=== PATIENT | male | born 1955 | race Hispanic/Latino ===

== ENCOUNTER 2019-03-09 10:06 | Day surgery (SDC) | payer BC ==
[2019-03-09] MEDS ORDERED: Fentanyl 100 MCG/2 ML VIAL ONE ×2 (11:18→11:50)
[2019-03-09] MEDS ORDERED: cefTRIAXone\\ROCEPHIN 2 GM VIAL ONE (11:30)
[2019-03-09] MEDS ORDERED: Sodium Chloride 0.9% 100 ML ONE (11:31)
[2019-03-09] MEDS ORDERED: Iothalamate Meglumine 60% 50 ML VIAL FS ONE (11:53)
--- NOTE | 2019-03-09 13:30 | RAD ---
EXAM: XR IVP Retrograde PROVIDED CLINICAL HISTORY: Ureteral stent placement, renal stones. COMPARISON: None FINDINGS/IMPRESSION: 18 fluoroscopic images from a retrograde left urogram are submitted for interpretation. [employer] image d emonstrates metallic densities overlying the region of the pubic symphysis with degenerative changes in the spine. Subsequent imaging demonstrates ureteral catheter in place with left retrograde urogram performed. No definite filling defect is seen within the region of the left renal collecting system or in the visualized left ureter. Final image demonstrates double pigtail left uret eral stent in place. Correlation with intraoperative findings is recommended.
[2019-03-09] MEDS ORDERED: Glycopyrrolate 0.2 MG/ML 5 ML SYRINGE ONE (14:41)
[2019-03-09] MEDS ORDERED: PHENYLEPHRINE-NS 100 MCG/ML 10 ML SYRINGE ONE (14:41)
[2019-03-09] MEDS ORDERED: Rocuronium Bromide 10 MG/ML (10ML VIAL) ONE (14:41)
[2019-03-09] MEDS ORDERED: Ondansetron PF 4 MG/2 ML Vial ONE (14:41)
[2019-03-09] MEDS ORDERED: Dexamethasone 20 MG/5 ML VIAL ONE (14:41)
[2019-03-09] MEDS ORDERED: ePHEDrine 50 MG/ML VIAL ONE (14:41)
[2019-03-09] MEDS ORDERED: PROPOFOL 200 MG/20 ML VIAL ONE (14:41)
[2019-03-09] MEDS ORDERED: Lidocaine 1% PF 5 ML VIAL ONE (14:41)
--- NOTE | 2019-03-10 08:52 | OP ---
DATE OF PROCEDURE: 03/09/2019 PREOPERATIVE DIAGNOSES: Left ureteral obstruction, gross hematuria, and prostate cancer. POSTOPERATIVE DIAGNOSES: Left ureteral obstruction, gross hematuria, and prostate cancer. PROCEDURE PERFORMED: Cysto, left retrograde, left stent, and transurethral resection of left trigone at left ureteral orifice. SPECIMEN REMOVED: FINDINGS: There was no evidence of stricture. There were some [id number] radiation changes on the trigone and bladder neck, little oozing from the bladder neck. There was no efflux from the left ureteral orifice, but once a wire was passed, there was bloody efflux. This was collected when we placed the open-ended catheter up and was sent for cytology. There was no obvious bladder tumor, foreign body or stone, or fistula, but there was some mound of tissue that appeared to actually be covered with mucosa that was around the left ureteral orifice and seemed to be involving that area of the trigone. It was a little difficult to get a guidewire across, so we ended up using an angled Glidewire to manipulate it, and once this was done, there was bloody efflux of urine, and the urine in the proximal ureter and renal pelvis was bloody when our open-ended catheter was placed up that high. It appears that the obstruction is right at the intramural ureter. For this reason, we went ahead and resected this tissue just to get a biopsy and know what it is and to see if that would actually open up the ureter for the future. DRAINS PLACED: 6 x 24 Polaris double-J stent without a string attached and a 20-Filipino Devi catheter at and 10 mL balloon. DESCRIPTION OF PROCEDURE: After obtaining written and verbal consent from the patient, after receiving IV antibiotics, he was taken to the operating suite. He was placed in a supine position on the treatment table. PlexiPulses were placed in his lower extremities and turned on. He was given a general anesthetic oral intubation, placed in dorsal lithotomy position under the fluoroscopic unit and sterilely prepped and draped for the above procedure. Cystoscopy was performed with a 22-Filipino sheath. This was well lubricated and passed under direct vision through the male urethra into the urinary bladder with aid of a 30-degree lens, a video camera, and monitor. There was a fair amount of bloody urine on the floor of the bladder. This was drained out, and the bladder was examined with the 30 and the 70-degree lens and filled and emptied number of times. The findings are as above. We went ahead and brought in a cone-tipped catheter hoping that we could maybe get it into the ureteral orifice that was sitting just offset from the center of this mound of tissue, it was not possible. We brought in a Pollack catheter 5-Filipino and placed through it an angle-tipped Glidewire, and then we were able to manipulate this into the left ureteral orifice and watch it go up the left ureter fluoroscopically. Once this was done, he started having bloody urine come out of the left ureteral orifice. A 5-Filipino Pollack catheter was placed over this and pushed up to the region of renal pelvis. The Glidewire was removed, and we drained about 12 mL of bloody urine from the upper collecting system, and this was sent for cytology. We then replaced the open-ended catheter over the Glidewire, removed the Glidewire, and then placed a 0.038 guidewire through the Pollack catheter and then removed the Pollack catheter leaving the guidewire in place. Next, we brought in a 24-Filipino resectoscope sheath with visual obturator, passed under direct vision with a 30-degree lens, well lubricated through the male urethra into the bladder, brought in Pedersen resectoscope with Gyrus generator and used this to resect the tissue that was abutting the ureteral orifice mainly on top and just lateral to it, cauterized this area, and specimens were removed and sent off. We then went ahead and removed these instruments and backloaded the guidewire through the Pollack catheter, placed Pollack catheter back up into the left upper collecting system, injected contrast filling up the entire collecting system. There was no extravasation at the area that we resected. The wire was placed back through the open-ended catheter. A stent was placed over the guidewire, pushed up into place, so its proximal end was coiled in the renal pelvis and its distal end was coiled in the bladder when the wire was removed. The instruments were removed. Devi catheter was sterilely inserted and it is balloon inflated, and it was hooked up to a drainage bag. He was taken out of the dorsal lithotomy position, awakened, extubated, and taken by stretcher to recovery room. Job ID: [id number]
== END 2019-03-09 17:36 | disposition home or self-care (01) ==
LOC: SDC 10:06
PROVIDERS: ATTEND Urology
PROC: 0VB03ZX Excision of Prostate, Percutaneous Approach, Diagnostic (ICD-10-PCS; principal; 2019-03-09)
PROC: 0VB08ZZ Excision of Prostate, Via Natural or Artificial Opening Endoscopic (ICD-10-PCS; principal; 2019-03-09)
PROC: 0T9780Z Drainage of Left Ureter with Drainage Device, Via Natural or Artificial Opening Endoscopic (ICD-10-PCS; principal; 2019-03-09)
DX: C61 Malignant neoplasm of prostate (principal); N40.0 Benign prostatic hyperplasia without lower urinary tract symptoms; R31.9 Hematuria, unspecified; I10 Essential (primary) hypertension; Z79.899 Other long term (current) drug therapy
CPT/HCPCS: 74420; 88112; 88305; C1758; C1769; J0696; J1100; J2001; J2405; J2704; J3010; J3490

== ENCOUNTER → 2019-04-20 | Day surgery (SDC) | payer BC ==
--- NOTE | 2019-04-20 08:19 | SPC ---
Ultrasound and Fluoroscopic guided left upper extremity PICC placement HISTORY: Urinary tract infection. Patient needs long-term IV antibiotics FINDINGS: Informed consent obtained prior to the procedure. An appropriate access site was determined with ultrasound guidance. The area was then meticulously pr epped and draped in usual sterile fashion. Skin overlying the left basilic vein anesthetized with 1% buffered lidocaine. Utilizing direct sonogr aphic guidance, vascular access is obtained via the left basilic vein, and an 0.018in guidewire was advanced to the cavoatrial junction. Intravascular length is calculated at 41 cm, and the PICC is cut accordingly. Needle is removed and replaced with a peel-away sheath. The PICC was advanced over the wire. Wire and peel-away sheath were removed. The tip of the catheter overlies the cavoatrial junction. The catheter was accessed and aspirated/flushed easily. Exposure data: 0.1 minutes of fluoroscopic time 779 mGy centimeter squared FINDINGS: Technically successful placement of a 41 centimeter single lumen 5 Bangladeshi left upper extremity PICC l ine. IMPRESSION: Successful ultrasound guided placement of a left upper extremity PICC.
== END ==
LOC: SPEC 06:44
PROVIDERS: ATTEND Internal Medicine Infectious Disease
PROC: 02HV33Z Insertion of Infusion Device into Superior Vena Cava, Percutaneous Approach (ICD-10-PCS; principal; 2019-04-20)
DX: N39.0 Urinary tract infection, site not specified (principal)
CPT/HCPCS: 36569; C1751

== ENCOUNTER → 2019-04-23 | Day surgery (SDC) | payer BC ==
[2019-04-22 08:54] VITALS: BMI 29.2
[~2019-04-23] MED LIST: Fentanyl 100 MCG/2 ML VIAL ONE; HYDROcodone/Acetaminophen 5/325 mg Tablet ONE; Iothalamate Meglumine 60% 50 ML VIAL FS ONE; MEROPENEM 1 GM/50 ML BAG IVPB SCH; PHENYLEPHRINE-NS 100 MCG/ML 10 ML SYRINGE ONE; PROPOFOL 200 MG/20 ML VIAL ONE; Scopolamine 1.5 mg/72 hour Patch ONE; Sodium Chloride 0.9% 10 ML ONE
--- NOTE | 2019-04-23 19:37 | OP ---
DATE OF PROCEDURE: 04/23/2019 PREOPERATIVE DIAGNOSES: Left ureteral obstruction, left ureteral stent, and right flank pain. POSTOPERATIVE DIAGNOSES: Left ureteral obstruction, left ureteral stent, and right flank pain. PROCEDURES PERFORMED: Cysto, DC left stent, left retrograde and right retrograde. ANESTHESIA: General. ESTIMATED BLOOD LOSS: Minimal. SPECIMENS REMOVED: Old left stent. FINDINGS: He has evidence of radiation cystitis. Right ureteral orifice is quite small, but in normal position and otherwise not abnormal. The left ureteral stent was removed intact. Retrograde study on that side showed some mildly dilatation of the upper ureter and renal pelvis, but the rest of the ureter on that side completely drained out his point of obstruction a few weeks ago and a stent was placed right at the trigone. Right retrograde study showed some mild upper ureteral and renal pelvis dilatation with sharp calyces. The ureter drained out well on this side also. I was able to view good clearing of both ureters of contrast both endoscopically and by imaging with the fluoroscopy unit. For this reason, stents were not replaced. DESCRIPTION OF PROCEDURE: After obtaining written and verbal consent from the patient, he was taken to the operating suite. He was placed in the supine position on the treatment table. PlexiPulses were placed on his lower extremities and turned on. He was given a general anesthetic and oral obturator intubation. He was placed in the dorsal lithotomy position. He was sterilely prepped and draped. Cystoscopy was performed with a 22-Vietnamese sheath. This was well lubricated and passed under direct vision through the male urethra into the bladder with aid of a 30-degree lens and video camera and monitor. The bladder was filled and emptied number of times. Inside of the bladder was inspected. The distal end of the indwelling right double-J stent was grasped and brought out through the urethral meatus. A guidewire was fed up through it, and the stent was removed over the guidewire. The guidewire was backloaded through the stent over a 5-Vietnamese Pollack catheter and the catheter was placed up to the region of what is expected to be the renal pelvis and the guidewire was removed. We injected about 15 mL of contrast and followed the entire ureter from the renal pelvis down to the intramural ureter as we filled it. We then removed the open-ended catheter and then watched both fluoroscopically and endoscopically as the contrast drained out the right ureter completely left and some contrast in upper ureter and renal pelvis, but did not appear to be any point of obstruction. We then brought in a 5-Vietnamese cone-tipped catheter, placed into the rather small right ureteral orifice and then injected about 15 mL of contrast in a retrograde manner. There was mild dilatation of the proximal right ureter and renal pelvis, but the calyceal system was sharp and when we removed the catheter from the ureter, there was good efflux of contrast out into the bladder and fluoroscopically, the right ureter cleared of contrast. For this reason, no stents were placed on either side. The patient at this point was awakened and extubated and taken by stretcher to recovery room. Job ID: [id number]
== END ==
LOC: SDC 09:49
PROVIDERS: ATTEND Urology
PROC: 0T778DZ Dilation of Left Ureter with Intraluminal Device, Via Natural or Artificial Opening Endoscopic (ICD-10-PCS; principal; 2019-04-23)
DX: N13.5 Crossing vessel and stricture of ureter without hydronephrosis (principal); N30.40 Irradiation cystitis without hematuria; C61 Malignant neoplasm of prostate; I10 Essential (primary) hypertension
CPT/HCPCS: 76000; C1758; J1642; J2185; J2704; J3010

== ENCOUNTER 2019-07-29 07:33 | Emergency (ER) | payer BC ==
[2019-07-29] MEDS ORDERED: Morphine 4 MG/ML VIAL ONE (09:11)
[2019-07-29] MEDS ORDERED: Ondansetron PF 4 MG/2 ML Vial ONE (09:11)
[2019-07-29 09:17] LABS: #Eosinphils 0.1 thou/uL (0.0-0.7); #Lymphocytes 0.8 thou/uL (1.20-3.40); #Neutrophils 10.4 thou/uL (1.40-6.50); %Basophils 0.1 % (0.0-1.0); %Eosinophils 0.4 % (0.0-10.0); %Lymphocytes 6.8 % (21.0-51.0); %Monocytes 7.9 % (0.0-10.0); %Neutrophils 84.8 % (42.0-75.0); Hemoglobin 10.5 g/dL (14.0-18.0); Mean Corpuscular HGB CONC 31.2 g/dL (32.0-36.0); Mean Corpuscular Hemoglobin 26.6 pg (27.0-31.0); Mean Corpuscular Volume 85.4 fL (78.0-98.0); Mean Platelet Volume 6.2 fL (7.4-10.4); Platelet Count 446 thou/uL (130-400); RBC Distribution Width 16.6 % (11.5-14.5); Red Blood Cell (RBC) Count 3.93 mill/uL (4.70-6.10); White Blood Cell (WBC) Count 12.2 thou/uL (4.8-10.8)
[2019-07-29 09:46] LABS: ALT (SGPT) 14 U/L (8-55); AST (SGOT) 27 U/L (5-34); Albumin 3.4 g/dL (3.4-4.8); Alkaline Phosphatase 201 U/L (40-110); Anion Gap 13 mmol/L (10-20); BUN (Urea Nitrogen) 8 mg/dL (8.4-25.7); Bilirubin, Total 0.5 mg/dL (0.2-1.2); CK (CPK) 119 U/L (30-200); Calc. Creatinine Clearance 0 mL/min (70-130); Calcium 8.5 mg/dL (7.8-10.44); Carbon Dioxide 24 mmol/L (23-31); Chloride 99 mmol/L (98-107); Estimated GFR-MDRD Greater than 90; Globulin 2.9 g/dL (2.4-3.5); Glucose 110 mg/dL (80-115); Potassium 4.7 mmol/L (3.5-5.1); Protein, Total 6.3 g/dL (5.8-8.1); Sodium 131 mmol/L (136-145)
--- NOTE | 2019-07-29 11:05 | CT ---
CT ABDOMEN AND PELVIS PERFORMED WITH CONTRAST ENHANCEMENT: Date: 07/29/2019 HISTORY: Patient has prostate cancer. Left flank pain. History of a stent in the left kidney. COMPARISON: 08/15/2011 exam. FINDINGS: The lung bases are clear of any infiltrative process. There is some linear scarring in the right base . The liver shows no focal abnormalities. A small hypodensity within the spleen is most likely a tiny c yst. It is too small to characterize. The pancreas and gallbladder regions appear unremarkable. Right and left adrenal glands are normal. The right and left kidneys are normal in size. Hypodensity involving the lower pole of the right kidney is compatible with a small cyst. There is some mild dila tation to the left collecting system. The left ureter is not significantly dilated. There is some per iureteral fat stranding along the proximal aspect of the ureter. This may be chronic changes related to the previous stent. I do not see any obstructing calculus. There is periaortic and aortocaval lymp hadenopathy. Just below the level of the left renal artery is the largest left periaortic node which measures 2.6 cm in AP dimension. Another node just anterior to the aorta at this level measures 1.4 c m. The largest aortocaval node is on axial image 48. It measures 1.[address] of pelvis was performed with contrast enhancement. An enlarged left common iliac chain lymph node is seen measuring 1.3 cm in size. Postoperative changes of the prostate region are present. Appendix is normal. Some minimal colonic diverticulosis is seen in the descending and sigmoid colon area. Review of osseous structures show small blastic bone lesions within the lower thoracic and upper lumb ar spine region, and also within the right iliac bone. The area within the right iliac bone shows a p ermeative pattern and there are soft tissue changes adjacent to which would suggest soft tissue mass associated with the bony changes. IMPRESSION: 1. Evidence of metastatic disease, probably all related to patient's prostate cancer. This includes bone metastases, including a permeative bone lesion involving the right iliac bone which has some sof t tissue component. In addition, there is pathologic adenopathy as described above which is in the pe riaortic and aortocaval and left common iliac chain level. 2. Mild colonic diverticulosis. 3. Some minimal dilatation of the left collecting system, but not the left ureter. This may be resid ual changes related to previous stent placement. No obstructing calculus. POS: [facility]
[2019-07-29] MEDS ORDERED: Iopamidol-370 76% 500 ML 1 ML ONE (14:37)
== END 2019-07-29 11:15 | disposition home or self-care (01) ==
LOC: ERS 07:33
DX: M54.5 Low back pain (principal); Z79.899 Other long term (current) drug therapy; Z79.891 Long term (current) use of opiate analgesic
CPT/HCPCS: 36415; 74177; 80053; 82550; 85025; 86140; 96361; 96374; 96375; J2270; J2405; Q9967